=== PATIENT | male | born 2000 | race Hispanic/Latino ===

== ENCOUNTER 2021-04-30 08:02 | Emergency (ER) | payer OTHER ==
[~2021-04-30] VITALS: Ht 172.7 cm; Wt 80.1 kg
[2021-04-30 08:03] VITALS: BP 132/82
[2021-04-30] MEDS ORDERED: BACIOIN7 TOP (09:49)
== END 2021-04-30 10:15 | disposition home or self-care (01) ==
LOC: M ED 08:02
DX: S63.613A Unspecified sprain of left middle finger, initial encounter (principal); S60.413A Abrasion of left middle finger, initial encounter; W01.0XXA Fall on same level from slipping, tripping and stumbling without subsequent striking against object, initial encounter; Y92.89 Other specified places as the place of occurrence of the external cause; Y99.0 Civilian activity done for income or pay